=== PATIENT | female | born 1995 | race Hispanic/Latino ===

== ENCOUNTER → 2023-10-03 07:16 | Outpatient (REF) | payer OTHER, SELFPAY ==
[2023-10-03 09:34] LABS: IgA 229 mg/dl (70-400)
[2023-10-03 09:45] LABS: ALT (SGPT) 40 U/L (0-35); AST (SGOT) 36 U/L (14-36); Alkaline Phosphatase 65 U/L (38-126); Direct Bilirubin 0.2 mg/dl (0.0-0.4); Total Bilirubin 0.5 mg/dl (0.2-1.3); Total Protein 6.4 g/dl (6.3-8.2)
[2023-10-03 09:52] LABS: Hepatitis B Surface Antigen Negative (Negative)
[2023-10-03 10:08] LABS: HIV Combo Negative (Negative)
[2023-10-03 10:10] LABS: Hepatitis B Core Ab, Total Negative (Negative); Hepatitis B Surface Antibody Negative; Hepatitis C Antibody Negative (Negative)
[2023-10-03 10:11] LABS: Cortisol, Random 10.3 ug/dl
[2023-10-03 10:19] LABS: Hepatitis A IgM Antibody Negative (Negative); Hepatitis B Core Ab, IgM Negative (Negative)
[2023-10-04 09:50] LABS: H. pylori Breath Test Negative (Negative)
[2023-10-04 16:09] LABS: tTG IgA Antibody 4.9 EU/ml (0-19); tTG IgG Antibody 26.6 EU/ml (0-19)
[2023-10-04 23:28] LABS: Endomysial IgA Antibody Titer <1:10 (<1:10)
== END ==
LOC: CLINIC 07:16
PROVIDERS: ATTENDING PHYSICIAN Student in an Organized Health Care Education/Training Program
DX: R63.4 Abnormal weight loss (principal); R74.8 Abnormal levels of other serum enzymes
CPT/HCPCS: 36415; 80076; 82533; 82784; 83013; 83516; 86231; 86704; 86705; 86706; 86709; 86803; 87340; 87389

== ENCOUNTER → 2023-12-07 09:12 | Outpatient (REF) | payer OTHER, SELFPAY ==
[2023-12-07 09:56] LABS: Hematocrit 37.6 % (37.0-47.0); Hemoglobin 12.7 g/dL (12.0-16.0); Mean Corp Hgb Conc. 33.8 g/dL (33.0-37.0); Mean Corpuscular Hgb 30.2 pg (27.0-31.0); Mean Corpuscular Volume 89.5 fL (81.0-99.0); Mean Platelet Volume 9.9 fL (7.4-10.4); Platelet Count 195 10^3/uL (130-400); Red Cell Dist. Width 12.1 % (11.5-14.5); White Blood Cell Count 5.2 10^3/uL (4.8-10.8)
[2023-12-07 10:39] LABS: ALT (SGPT) 26 U/L (0-35); AST (SGOT) 30 U/L (14-36); Albumin 4.4 g/dl (3.5-5.0); Alkaline Phosphatase 67 U/L (38-126); Blood Urea Nitrogen 10 mg/dl (7-17); Calcium 9.7 mg/dl (8.4-10.2); Carbon Dioxide 26 mmol/L (22-30); Chloride 104 mmol/L (98-107); Glucose 81 mg/dl (70-99); Potassium 4.3 mmol/L (3.5-5.1); Sodium 141 mmol/L (135-145); Total Bilirubin 0.5 mg/dl (0.2-1.3); Total Protein 6.9 g/dl (6.3-8.2); eGFR > 60.00
[2023-12-07 10:47] LABS: IgA 240 mg/dl (70-400)
[2023-12-10 00:37] LABS: Endomysial IgA Antibody Titer <1:10 (<1:10)
== END ==
LOC: REG 09:12
PROVIDERS: ATTENDING PHYSICIAN Student in an Organized Health Care Education/Training Program
DX: R63.4 Abnormal weight loss (principal)
CPT/HCPCS: 36415; 80053; 82784; 83516; 85027; 86231